=== PATIENT | male | born 1980 | race Caucasian/White ===

== ENCOUNTER 2024-05-10 13:22 | Emergency (ER) | payer OTHER, SELFPAY ==
[2024-05-10 13:23] VITALS: BP 128/92
[2024-05-10 14:58] LABS: COVID-19 Antigen Negative (Negative)
--- NOTE | 2024-05-10 15:07 | ED.GENMED ---
History of Present Illness
General
Chief Complaint: Throat Problem
Time Seen by Provider: 05/10/24 13:49
History of Present Illness
History of Present Illness:
44-year-old male with history of schizoaffective disorder presenting to the emergency department for subjective fever and throat pain. Patient reports symptoms started yesterday. He reports that he went to work today and he had some shaking in his
hands, felt chills. Notes history of strep throat in the past. Denies known sick contacts. Denies cough, chest pain, difficulty breathing. Denies abdominal pain. Denies additional acute medical complaints.
Phy Exam
Physical Exam
Physical Exam:
General: Well-appearing, no clinical signs of dehydration, nontoxic and in no acute distress
HEENT: protecting airway, no significant oropharyngeal swelling or edema. No exudates. Normal phonation of voice. No trismus
Neck: appears supple
CV: Normal heart rate, regular rhythm
Resp: No accessory muscle use, no increased work of breathing, lungs clear to auscultation bilaterally
Abd: No distention
Extremities: No deformities, no swelling
Neuro: alert, no focal neurologic deficit
: deferred
Rectal: deferred
Psych: Normal affect
Skin: Intact
Course
Orders/Labs/Results
Orders:
Orders
05/10/24 14:14
COVID-19 Antigen Urgent
Source: Nasal Swab
Rapid Strep Group A Urgent
[facility] Source: Throat/Pharynx
Specimen Description:
Date Specimen was Collected: 05/10/24
Time Specimen was Collected: 14:13
Vital Signs
Initial and Last Documented VS:
Initial Vital Signs
Temp Pulse Resp BP Pulse Ox
98.6 F 107 20 128/92 97
05/10/24 13:23 05/10/24 13:23 05/10/24 13:23 05/10/24 13:23 05/10/24 13:23
Last Documented Vital Signs
Temp Pulse Resp BP Pulse Ox
98.6 F 107 20 128/92 97
05/10/24 13:23 05/10/24 13:23 05/10/24 13:23 05/10/24 13:23 05/10/24 13:23
MDM/Problems Addressed
MDM/Problems Addressed:
44-year-old male with history of schizoaffective disorder presenting to the emergency department for throat pain and subjective fever. Vital signs on arrival significant for mild tachycardia.
On exam patient is well-appearing, no acute distress. Patient nontoxic. Overall benign examination of the oropharynx, no erythema or edema. No trismus. Normal phonation of voice. Suspect likely viral syndrome. Patient notes history of strep
throat, so strep is a consideration. Will COVID and strep pharyngitis. Additionally patient notes that he was placed on Haldol over a month ago for hallucinations. He has been having jitteriness and difficulty sleeping while on this medication.
He is asking whether or not he can stop this medication. I advised that he follow-up with a therapist or psychiatrist. He presently denies any SI or HI.
15:00 - Patient is positive for strep pharyngitis. Will treat with antibiotics. Otherwise feel stable for discharge. Return precautions discussed and patient verbalized understanding.
*Critical Care Note
Total Time (30-74mins, 75-104mins- exclusive of procedures): Not Applicable
ED Attending Note
-
Portions of this chart may have been created with voice recognition software.� Occasional wrong word or��sound alike� substitutions may have occurred due to the inherent limitations of voice recognition software.
Discharge Plan
Departure
Referrals:
NONE,* [Family Provider] -
Interventions
Interventions:
*Risk Screen - Suicide Last Done: 05/10/24 13:23
*General Assessment Last Done: 05/10/24 13:23
*Neglect/Abuse Screening Last Done: 05/10/24 13:23
ED-EENT Assessment Last Done: 05/10/24 14:06
ED- Pulmonary Assessment Last Done: 05/10/24 14:06
Discharge Date and Time
Print Language: JAPANESE
[2024-05-10] MEDS: AMOXIL 500 MG PO (15:59)
[2024-05-10 16:27] VITALS: BP 108/70
== END 2024-05-10 16:32 | disposition home or self-care (01) ==
LOC: EMR 13:22
PROVIDERS: EMERGENCY PHYSICIAN Student in an Organized Health Care Education/Training Program
DX: J02.0 Streptococcal pharyngitis (principal); F25.9 Schizoaffective disorder, unspecified
CPT/HCPCS: 99282; 87070; 87811; 87880